=== PATIENT | male | born 1955 | race Hispanic/Latino ===

== ENCOUNTER 2018-04-20 19:15 | Emergency (ER) | payer SELFPAY ==
[2018-04-20 19:16] VITALS: BMI 28.2
[2018-04-20 19:46] VITALS: RESP 18; TEMP 98
[2018-04-20] MEDS: Glucagon Recombinant 1 mg Inj IM STA (20:21)
--- NOTE | 2018-04-20 20:46 | ED PDOC ---
Arrival/HPI - General Chief Complaint: GI Problem Time Seen by Provider: 04/20/18 19:20 Historian: Patient - History of Present Illness Narrative History of Present Illness (Text): 04/20/18 20:39 63 year old male, with no significant past medical history, presents to the emergency department complaining of something stuck in his throat, since 12:00 today. Patient states he was eating chicken at noon when he felt something get stuck in his throat. Patient states he has tried things like olive oil and apple cider vinegar to make it move down, with no effect. Patient admits to similar incident that occurred over a year ago, stating he had to undergo an endoscopy after unsuccessful shot was given to him in the Emergency Department. He reports not having a PMD, but attributes his symptoms to a possible food allergy. He denies any difficulty breathing, fevers, chills, headache, dizziness, chest pain, shortness of breath, abdominal pain, nausea, vomiting, diarrhea, or any other complaint. Time/Duration: 4-6 hours (9 hours ) Symptom Onset: Sudden Symptom Course: Unchanged Quality: Fullness Severity Level: Mild Activities at Onset: Eating Context: Home Past Medical History - Provider Review Nursing Documentation Reviewed: Yes - Infectious Disease Hx of Infectious Diseases: None - Past Medical History Past Medical History: No Previous - Psychiatric Hx Depression: No Hx Emotional Abuse: No Hx Physical Abuse: No Hx Substance Use: No - Past Surgical History Past Surgical History: No Previous - Anesthesia Hx Anesthesia: No Hx Anesthesia Reactions: No Hx Malignant Hyperthermia: No - Suicidal Assessment Feels Threatened In Home Enviroment: No Family/Social History - Physician Review Nursing Documentation Reviewed: Yes Family/Social History: No Known Family HX Smoking Status: Unknown If Ever Smoked Hx Alcohol Use: Yes Hx Substance Use: No Allergies/Home Meds Allergies/Adverse Reactions: Allergies No Known Allergies Allergy (Verified 01/10/13 15:04) Home Medications: Home Meds Medication Instructions Recorded Confirmed RX: No Known Home Med 01/10/13 01/10/13 Review of Systems - Physician Review All systems were reviewed & negative as marked: Yes - Review of Systems Constitutional: absent: Fevers, Night Sweats Respiratory: absent: SOB, Cough Cardiovascular: absent: Chest Pain Gastrointestinal: absent: Abdominal Pain, Diarrhea, Nausea, Vomiting Neurological: absent: Headache, Dizziness Physical Exam Vital Signs Reviewed: Yes Vital Signs Temp Pulse Resp BP Pulse Ox 04/20/18 19:16 98 F 63 18 167/93 H 97 Temperature: Afebrile Blood Pressure: Hypertensive Pulse: Regular Respiratory Rate: Normal Appearance: Positive for: Well-Appearing, Non-Toxic, Comfortable Pain Distress: None Mental Status: Positive for: Alert and Oriented X 3 - Systems Exam Head: Present: Atraumatic, Normocephalic Pupils: Present: PERRL Extroacular Muscles: Present: EOMI Conjunctiva: Present: Normal Mouth: Present: Moist Mucous Membranes Neck: Present: Normal Range of Motion Respiratory/Chest: Present: Clear to Auscultation, Good Air Exchange. No: Respiratory Distress, Accessory Muscle Use Cardiovascular: Present: Regular Rate and Rhythm, Normal S1, S2. No: Murmurs Abdomen: No: Tenderness, Distention, Peritoneal Signs Back: Present: Normal Inspection Upper Extremity: Present: Normal Inspection. No: Cyanosis, Edema Lower Extremity: Present: Normal Inspection. No: Edema Neurological: Present: GCS=15, CN II-XII Intact, Speech Normal Skin: Present: Warm, Dry, Normal Color. No: Rashes Psychiatric: Present: Alert, Oriented x 3, Normal Insight, Normal Concentration Medical Decision Making ED Course and Treatment: 04/20/18 20:48 Impression: 63 year old male presents with esophageal obstruction Differential Diagnoses Include But Are Not Limited To: --Impacted Food Bolus --Zenker's Diverticulum Plan: -- Glucagon -- Reassess and disposition Prior Visits: Notes and results from previous visits were reviewed. Progress Notes: 04/20/18 21:40 Patient reports no change in symptoms after administration of glucagon. Shared decision making for decision to draw labs with GI consult for possible endoscopy discussed with patient who refuses an additional intervention and would rather signout out AMA. Risks of signing out without completion of medical evaluation explained to patient who acknowledges and demonstrates understanding. AMA form signed. Patient advised to reports back to the ED if symptoms worsen. - Medication Orders Current Medication Orders: Discontinued Medications Glucagon (Glucagen Diagnostic Kit) 1 mg IM STAT STA Stop: 04/20/18 20:02 Last Admin: 04/20/18 20:21 Dose: 1 mg IM Administration Charges Document 04/20/18 20:21 DU (Rec: 04/20/18 20:21 [id number]) Injection Site MAR Injection Site Left Arm Charges for Administration # of IM Administrations 1 - Scribe Statement The provider has reviewed the documentation as recorded by the Aaronibalicja Salvador Provider Scribe Attestation: All medical record entries made by the Scribe were at my direction and personally dictated by me. I have reviewed the chart and agree that the record accurately reflects my personal performance of the history, physical exam, medical decision making, and the department course for this patient. I have also personally directed, reviewed, and agree with the discharge instructions and disposition. Disposition/Present on Arrival - Present on Arrival Any Indicators Present on Arrival: No History of DVT/PE: No History of Uncontrolled Diabetes: No Urinary Catheter: No History of Decub. Ulcer: No History Surgical Site Infection Following: None - Disposition Have Diagnosis and Disposition been Completed?: Yes Diagnosis: Food impaction of esophagus Disposition: AGAINST MEDICAL ADVICE Disposition Time: 21:16 Condition: STABLE Forms: [employer] (Togolese)
[2018-04-20 22:13] VITALS: BP 164/87; PULSE 61; O2SAT 98
== END 2018-04-20 21:50 | disposition left against medical advice (07) ==
LOC: ED 19:15
DX: T18.128A Food in esophagus causing other injury, initial encounter (principal)
CPT/HCPCS: 96372; 99283; J1610